=== PATIENT | male | born 1945 | race Caucasian/White ===

== ENCOUNTER 2018-05-15 09:04 | Day surgery (SDC) | payer OTHER ==
[2018-05-13 09:11] VITALS: BMI 25.8
[2018-05-15] MEDS ORDERED: PROPOFOL 20 ML ONE (10:22)
[2018-05-15 11:36] VITALS: BP 119/84; PULSE 73; TEMP 97.5
== END 2018-05-15 11:00 | disposition home or self-care (01) ==
LOC: FASU-ENDO 09:04
PROVIDERS: ATTEND Internal Medicine Gastroenterology
PROC: 0DB68ZX Excision of Stomach, Via Natural or Artificial Opening Endoscopic, Diagnostic (ICD-10-PCS; 2018-05-15)
PROC: 0DB58ZX Excision of Esophagus, Via Natural or Artificial Opening Endoscopic, Diagnostic (ICD-10-PCS; 2018-05-15)
PROC: 0DB98ZX Excision of Duodenum, Via Natural or Artificial Opening Endoscopic, Diagnostic (ICD-10-PCS; principal; 2018-05-15 10:34)
DX: K29.50 Unspecified chronic gastritis without bleeding (principal); K20.8 Other esophagitis; K22.8 Other specified diseases of esophagus; Z80.0 Family history of malignant neoplasm of digestive organs; R10.13 Epigastric pain
CPT/HCPCS: 88305-TC; 88312-TC; 88342-TC

== ENCOUNTER 2018-06-05 09:53 | Day surgery (SDC) | payer OTHER ==
[2018-05-30 13:24] VITALS: BMI 25.8
[2018-06-05] MEDS ORDERED: PROPOFOL 20 ML ONE ×2 (12:22)
[2018-06-05] MEDS ORDERED: LIDOCAINE HCL/PF 2% SDV 5ML VIAL ONE (12:22)
[2018-06-05 13:06] VITALS: TEMP 98.5
[2018-06-05 13:30] VITALS: BP 113/66; PULSE 66
--- NOTE | 2018-06-07 16:41 | PATH ---
Surgical Pathology Report Patient Name: NURIA UPTON [facility]. Rec. #: [id number] /Age/Gender: 1945 (Age: 72) / M Account: [id number] Location: [facility] Taken: 06/05/2018 Received: 06/05/2018 Reported: 06/07/2018 Physicians: Shelbie Otto M.D. Specimen(s) Received POLYP ASCENDING COLON Clinical History Screening Postoperative diagnosis: Diverticulosis, colon polyps, hemorrhoids Final Diagnosis ASCENDING COLON, POLYP, BIOPSY: POLYPOID COLONIC MUCOSA WITH PROMINENT LYMPHOID AGGREGATE. Electronically Signed Shelbie Granados M.D. Gross Description Received in formalin, labeled "biopsy polyp ascending colon" is a gomez, irregular portion of soft tissue measuring 0.3 cm. in greatest dimension. The specimen is submitted in toto in one cassette. 06/06/201806/06/2018
== END 2018-06-05 13:30 | disposition home or self-care (01) ==
LOC: FASU-ENDO 09:53
PROVIDERS: ATTEND Internal Medicine Gastroenterology
PROC: 0DBK8ZX Excision of Ascending Colon, Via Natural or Artificial Opening Endoscopic, Diagnostic (ICD-10-PCS; principal; 2018-06-05 12:32)
DX: Z86.010 Personal history of colon polyps (principal); D12.2 Benign neoplasm of ascending colon; K64.1 Second degree hemorrhoids; K57.30 Diverticulosis of large intestine without perforation or abscess without bleeding
CPT/HCPCS: 88305-TC

== ENCOUNTER 2022-11-20 01:26 | Emergency (ER) | payer OTHER ==
[2022-11-20 01:35] VITALS: BP 134/72; PULSE 60; RESP 18; TEMP 97.8; BMI 25.8
[2022-11-20 03:42] LABS: EPI CELLS 28 /uL (0-25.1); HYALINE CASTS 1 /uL (0-3.1); PH,URINE 6.5 (5.0-8.0); URINE APPEARANCE CLEAR; URINE BACTERIA 44 /uL (0-1359); URINE BILIRUBIN NEGATIVE (NEGATIVE); URINE COLOR YELLOW; URINE GLUCOSE (UA) NEGATIVE (NEGATIVE); URINE KETONE NEGATIVE (NEGATIVE); URINE LEUK ESTERASE 2+ (NEGATIVE); URINE NITRITE NEGATIVE (NEGATIVE); URINE PROTEIN NEGATIVE (NEGATIVE); URINE RBC 82 /uL (0-23.9); URINE WBC 306 /uL (0-25.8)
[2022-11-20 03:43] LABS: BASO % 0.5 % (0-2.0); EOS % 2.8 % (0-4.5); HEMATOCRIT 40.3 % (35.4-49); HEMOGLOBIN 14.4 GM/dL (11.7-16.9); LYMPH % 13.2 % (8-40); MCH 32.9 pg (25.7-33.7); MCHC 35.7 g/dl (32.0-35.9); MEAN PLT VOLUME 8.1 fl (7.5-11.1); MONO % 9.1 % (3.8-10.2); NEUT % 74.4 % (42.8-82.8); PLATELET COUNT 211 10^3/uL (134-434); RBC 4.38 M/mm3 (4.00-5.60); RDW 13.7 % (11.9-15.9); WHITE BLOOD COUNT 9.6 K/mm3 (4.0-10.0)
[2022-11-20] MEDS ORDERED: CEFTRIAXONE 1,000 MG in DEXTROSE 5%-WATER - 50 ML IVPB ONE (04:06)
[2022-11-20] MEDS ORDERED: CEFTRIAXONE 1 GM/50 ML BAG ONE (04:10)
[2022-11-20 04:18] LABS: POTASSIUM 4.2 mmol/L (3.5-5.1)
[2022-11-20 04:20] LABS: CALCIUM 8.7 mg/dL (8.5-10.1)
[2022-11-20 04:21] LABS: ALBUMIN 3.8 g/dl (3.4-5.0); BLOOD UREA NITROGEN 20.6 mg/dL (7-18)
[2022-11-20 04:24] LABS: CREATININE 0.9 mg/dL (0.55-1.3)
[2022-11-20 04:25] LABS: TOT PROT 6.9 g/dl (6.4-8.2)
[2022-11-20 04:26] LABS: BILIRUBIN,TOTAL 0.6 mg/dL (0.2-1)
== END 2022-11-20 05:50 | disposition home or self-care (01) ==
LOC: JER 01:26
PROC: 0T2BX0Z Change Drainage Device in Bladder, External Approach (ICD-10-PCS; principal; 2022-11-20)
PROC: 3E03329 Introduction of Other Anti-infective into Peripheral Vein, Percutaneous Approach (ICD-10-PCS; 2022-11-20)
DX: R33.9 Retention of urine, unspecified (principal); R10.33 Periumbilical pain; N13.9 Obstructive and reflux uropathy, unspecified
CPT/HCPCS: 36415; 80053; 81003; 85025; 87086; 99284-25

== ENCOUNTER 2023-09-19 10:25 | Day surgery (SDC) | payer OTHER ==
[2023-09-13 12:43] VITALS: BMI 26.1
[2023-09-19 12:06] VITALS: RESP 18
[2023-09-19] MEDS ORDERED: PROPOFOL 40 ML ONE (12:19)
[2023-09-19 13:24] VITALS: BP 110/70; PULSE 66; TEMP 98
== END 2023-09-19 13:15 | disposition home or self-care (01) ==
LOC: FASU-ENDO 10:25
PROVIDERS: ATTEND Internal Medicine Gastroenterology
PROC: 0DBN8ZX Excision of Sigmoid Colon, Via Natural or Artificial Opening Endoscopic, Diagnostic (ICD-10-PCS; principal; 2023-09-19 12:19)
DX: Z12.11 Encounter for screening for malignant neoplasm of colon (principal); K63.5 Polyp of colon; K57.30 Diverticulosis of large intestine without perforation or abscess without bleeding; K64.1 Second degree hemorrhoids; Z86.010 Personal history of colon polyps
CPT/HCPCS: 88305-TC